=== PATIENT | male | born 1945 | race Caucasian/White ===

== ENCOUNTER → 2021-01-10 09:26 | Outpatient (CLI) | payer MEDICARE, OTHER, SELFPAY ==
[2021-01-10 09:44] LABS: Hematocrit 45.4 % (40-54); Mean Corpuscular Hgb 30.5 pg (27.0-32.0); Mean Corpuscular Volume 92.3 fL (80-94); Mean Platelet Vol. 8.7 fl (6.2-12.0); Platelet Count 250 K/mm3 (150-450); RBC Distribution Width CV 12.4 % (11.6-14.6); RBC Distribution Width SD 42.5 fl (35.1-43.9); Red Blood Count 4.92 M/mm3 (4.6-6.2); White Blood Count 8.1 K/mm3 (4.4-11.0)
[2021-01-10 10:15] LABS: Vitamin B12 382 pg/mL (211-911)
[2021-01-10 10:16] LABS: Ferritin 115 ng/mL (26-388); Iron Binding Capacity,Total 268 ug/dL (250-450)
== END ==
PROVIDERS: Referring Provider Nurse Practitioner Acute Care; Visit Provider Nurse Practitioner Acute Care
DX: G25.81 Restless legs syndrome (principal); I48.91 Unspecified atrial fibrillation
CPT/HCPCS: 36415; 82607; 82728; 83550; 85027